=== PATIENT | female | born 1990 | race Caucasian/White ===

== ENCOUNTER 2017-02-16 16:49 | Emergency (ER) | payer OTHER ==
[2017-02-16] MEDS ORDERED: IBUPROFEN 800 MG TAB PO STA (17:11)
--- NOTE | 2017-02-16 17:21 | ED ---
Lower Extremity Injury HPI - General Chief Complaint: Extremity Injury, Lower Stated Complaint: Right Foot Injury Time Seen by Provider: 02/16/17 17:06 Source: patient Mode of arrival: wheelchair Limitations: no limitations - History of Present Illness Initial Comments: Patient is a 26-year-old female presenting to the emergency department with complaints of right forefoot pain. Onset of injury 4 days ago. Patient states she was asleep and rolled over and accidentally kicked her foot into the wall. Patient then states that her accidentally stepped on top of her right foot. In addition, patient states that she was walking and hit her right foot against some furniture. Patient reports previous right ankle fracture 2. Patient states she took some Motrin yesterday and put some ice on it. No treatment today. Patient currently rates pain 8 out of 10, exacerbated with movement, relieved with rest. Patient denies fevers, chills, nausea, vomiting, shortness of breath, chest pain, or abdominal pain. Patient denies numbness or tingling. Patient states she is able to bear weight on her foot but it is painful. - Related Data Previous Rx's Medication Instructions Recorded Cyclobenzaprine [Flexeril] 10 mg PO TID #20 tab 10/20/16 Ibuprofen [Motrin] 600 mg PO Q6HR PRN #20 tab 10/20/16 Ibuprofen [Motrin] 800 mg PO Q8HR PRN #20 tab 02/16/17 Allergies Allergy/AdvReac Type Severity Reaction Status Date / Time No Known Allergies Allergy Verified 10/20/16 15:47 Review of Systems ROS Statement: Those systems with pertinent positive or pertinent negative responses have been documented in the HPI. ROS Other: All systems not noted in ROS Statement are negative. Past Medical History Past Medical History: Asthma Additional Past Medical History / Comment(s): back pain History of Any Multi-Drug Resistant Organisms: None Reported Past Surgical History: Section Additional Past Surgical History / Comment(s): D&C HYSTOSCOPE, neck surgery Past Psychological History: Anxiety, Depression Smoking Status: Current every day smoker Past Alcohol Use History: None Reported Past Drug Use History: None Reported General Exam - General Exam Comments Initial Comments: GENERAL: Pt awake and alert, well-appearing, well-nourished, and in no acute distress. HEAD: Atraumatic, normocephalic. EYES: Pupils equal, round, and reactive to light, extraocular movements intact, sclera anicteric, conjunctiva are normal. ENT: Oropharynx clear without exudates. Moist mucous membranes. Tongue smooth, pink, no lesions, protrudes in midline. NECK:Normal range of motion, supple without lymphadenopathy or JVD. LUNGS: Breath sounds clear to auscultation bilaterally. No wheezes, rales, or rhonchi. HEART: Heart S1, S2, no S3 or S4. Regular rate and rhythm. No murmurs, rubs or gallops. ABDOMEN: Soft, nontender, nondistended, normoactive bowel sounds. EXTREMITIES: Palpable peripheral pulses. No edema. No calf tenderness. NEUROLOGICAL: Pt oriented x 3. No focal deficits. Strength and sensation grossly intact. PSYCH: Normal mood, normal affect. SKIN: Warm, dry, intact. Normal turgor. No rashes or lesions. Limitations: no limitations Right Ankle exam: Present: normal inspection, full ROM. Absent: tenderness, swelling Foot/Toe exam: Present: full ROM, tenderness (Tenderness to right forefoot), ecchymosis (Mild ecchymosis noted to right forefoot). Absent: swelling, deformity, erythema, calcaneal tenderness, tenderness at base of 5th metatarsal Neurovascular tendon exam: Absent: no vascular compromise, pulse deficit, abnormal cap refill, motor deficit, sensory deficit, extremity cold to touch, abnormal 2-point discrimination, foot drop Gait: observed and limited by pain Course Vital Signs 02/16/17 16:57 Temperature 97.5 F L Pulse Rate 71 Respiratory 15 Rate Blood Pressure 103/60 O2 Sat by Pulse 98 Oximetry Medical Decision Making - Medical Decision Making Right foot contusion. X-ray of right foot negative for fracture. RICE instructions provided. Patient instructed to follow-up with orthopedic surgeon with persistent pain. Patient agrees to treatment plan. Discharge instructions and return parameters reviewed. - Radiology Data Radiology results: report reviewed Right foot x-ray: No fracture or dislocation. Metatarsals are intact. Joint spaces are normal. No erosion. Disposition Clinical Impression: Contusion of right foot Disposition: HOME SELF-CARE Condition: Good Instructions: Foot Contusion (ED) Additional Instructions: Avoid activity that causes pain Ice 20 minutes 4 times a day usually for 2-3 days Ang wrap to provide support and limit swelling Keep elevated as much as possible 24-48 hours. Continue Motrin 800 mg 3 times a day as needed. Return to the emergency department with symptoms of increased swelling, pain, numbness, tingling, or foot feeling cold to touch. Follow-up with primary service and orthopedic service as directed. Prescriptions: Ibuprofen [Motrin] 800 mg PO Q8HR PRN #20 tab PRN Reason: Pain Referrals: None,Stated [Primary Care Provider] - 1-2 days Branden Matamoros PAC [[employer]] - 1-2 days (Follow-up in 7-10 days if pain persists.) Time of Disposition: 18:02
--- NOTE | 2017-02-16 17:46 | XR ---
EXAMINATION TYPE: XR foot complete RT DATE OF EXAM: 02/16/2017 5:29 PM COMPARISON: NONE HISTORY: Foot pain TECHNIQUE: 3 views FINDINGS: I see no fracture nor dislocation. Metatarsals are intact. Joint spaces are normal. There a re no erosions. IMPRESSION: Negative right foot exam.
[2017-02-16 18:13] VITALS: BP 96/59; PULSE 61; RESP 14; TEMP 97.9
== END 2017-02-16 18:15 | disposition home or self-care (01) ==
LOC: EC 16:49
DX: S90.31XA Contusion of right foot, initial encounter (principal); W22.01XA Walked into wall, initial encounter; F17.200 Nicotine dependence, unspecified, uncomplicated; Z79.899 Other long term (current) drug therapy
CPT/HCPCS: 99283

== ENCOUNTER 2017-03-14 18:50 | Emergency (ER) | payer OTHER ==
[2017-03-14 18:56] VITALS: RESP 20; TEMP 98
[2017-03-14] MEDS ORDERED: ONDANSETRON 4 MG/2 ML VIAL IVP STA (20:12)
[2017-03-14] MEDS ORDERED: SODIUM CHLORIDE 0.9% 1,000 ML IV STA (20:12)
[2017-03-14] MEDS ORDERED: KETOROLAC 30 MG/ML 1 ML VIAL IVP STA (20:12)
[2017-03-14] MEDS ORDERED: HYDROmorphone 1 MG/ML 1 ML SYRINGE IVP STA (20:12)
--- NOTE | 2017-03-14 20:27 | ED ---
Abdominal Pain HPI - General Chief Complaint: Abdominal Pain Stated Complaint: abd pain Time Seen by Provider: 03/14/17 20:07 Source: patient, RN notes reviewed Mode of arrival: ambulatory Limitations: no limitations - History of Present Illness Initial Comments: 26-year-old female presents emergency Department chief complaint right-sided abdominal pain, right flank pain for 10 days. Patient states it waxes and wanes but states it's much worse at this time. Patient denies any fever or chills. Patient complains of nausea is some vomiting. Denies any dysuria or hematuria. Patient states she's had some urinary frequency. Denies any vaginal bleeding at this time. She states she does had a menstrual cycle 2 weeks ago denies any chance . Patient denies any abdominal surgeries in the past. Patient states that she has a history of hep C. Patient denies any chest pain or shortness of breath. She states the pain does radiate to her back. - Related Data Previous Rx's Medication Instructions Recorded Acetaminophen-Codeine 300-30mg 1 tab PO Q4H PRN #20 tablet 03/14/17 [Tylenol #3] Ibuprofen [Motrin] 600 mg PO Q8HR PRN #30 tab 03/14/17 Allergies Allergy/AdvReac Type Severity Reaction Status Date / Time No Known Allergies Allergy Verified 03/14/17 20:05 Review of Systems ROS Statement: Those systems with pertinent positive or pertinent negative responses have been documented in the HPI. ROS Other: All systems not noted in ROS Statement are negative. Past Medical History Past Medical History: Asthma Additional Past Medical History / Comment(s): back pain History of Any Multi-Drug Resistant Organisms: None Reported Past Surgical History: Section Additional Past Surgical History / Comment(s): D&C HYSTOSCOPE, neck surgery Past Psychological History: Anxiety, Depression Smoking Status: Current every day smoker Past Alcohol Use History: None Reported Past Drug Use History: None Reported General Exam Limitations: no limitations General appearance: alert, in no apparent distress Neck exam: Present: normal inspection, full ROM. Absent: tenderness, meningismus, lymphadenopathy Respiratory exam: Present: normal lung sounds bilaterally. Absent: respiratory distress, wheezes, rales, rhonchi, stridor Cardiovascular Exam: Present: regular rate, normal rhythm, normal heart sounds. Absent: systolic murmur, diastolic murmur, rubs, gallop, clicks GI/Abdominal exam: Present: soft, tenderness (Mild tenderness right lower quadrant, right flank), normal bowel sounds. Absent: distended, guarding, rebound, rigid Back exam: Present: CVA tenderness (R). Absent: CVA tenderness (L) Neurological exam: Present: alert Skin exam: Present: warm, dry, intact, normal color. Absent: rash Course Vital Signs 03/14/17 18:54 Temperature 98.0 F Pulse Rate 85 Respiratory 20 Rate Blood Pressure 103/63 O2 Sat by Pulse 99 Oximetry Medical Decision Making - Medical Decision Making 26-year-old female presented for right lower quadrant abdominal pain. Patient has a right ovarian cyst. Patient will be discharged. - Lab Data Result diagrams: 03/14/17 20:36 03/14/17 20:36 Lab Results 03/14/17 03/14/17 03/14/17 Range/Units 20:36 20:36 20:36 WBC 7.7 (3.8-10.6) k/uL RBC 4.65 (3.80-5.40) m/uL Hgb 12.9 (11.4-16.0) gm/dL Hct 40.5 (34.0-46.0) % MCV 87.0 (80.0-100.0) fL MCH 27.8 (25.0-35.0) pg MCHC 32.0 (31.0-37.0) g/dL RDW 13.3 (11.5-15.5) % Plt Count 175 (150-450) k/uL Neutrophils % 64 % Lymphocytes % 25 % Monocytes % 5 % Eosinophils % 4 % Basophils % 1 % Neutrophils # 4.9 (1.3-7.7) k/uL Lymphocytes # 1.9 (1.0-4.8) k/uL Monocytes # 0.4 (0-1.0) k/uL Eosinophils # 0.3 (0-0.7) k/uL Basophils # 0.1 (0-0.2) k/uL Sodium 139 (137-145) mmol/L Potassium 4.0 (3.5-5.1) mmol/L Chloride 105 (98-107) mmol/L Carbon Dioxide 25 (22-30) mmol/L Anion Gap 9 mmol/L BUN 8 (7-17) mg/dL Creatinine 0.70 (0.52-1.04) mg/dL Est GFR (MDRD) Af Amer >60 (>60 ml/min/1.73 sqM) Est GFR (MDRD) Non-Af >60 (>60 ml/min/1.73 sqM) Glucose 88 (74-99) mg/dL Calcium 9.7 (8.4-10.2) mg/dL Total Bilirubin 0.6 (0.2-1.3) mg/dL AST 26 (14-36) U/L ALT 47 (9-52) U/L Alkaline Phosphatase 40 (38-126) U/L Total Protein 7.2 (6.3-8.2) g/dL Albumin 4.5 (3.5-5.0) g/dL Amylase 46 (30-110) U/L Lipase 14 L (23-300) U/L Urine Color Urine Appearance (Clear) Urine pH (5.0-8.0) Ur Specific [place] (1.001-1.035) Urine Protein (Negative) Urine Glucose (UA) (Negative) Urine Ketones (Negative) Urine Blood (Negative) Urine Nitrite (Negative) Urine Bilirubin (Negative) Urine Urobilinogen (<2.0) mg/dL Ur Leukocyte Esterase (Negative) Urine RBC (0-5) /hpf Urine WBC (0-5) /hpf Ur Squamous Epith Cells (0-4) /hpf Amorphous Sediment (None) /hpf Urine Mucus (None) /hpf Urine Sperm (None) /hpf Urine HCG, Qual Not Detected (Not Detectd) 03/14/17 Range/Units 20:36 WBC (3.8-10.6) k/uL RBC (3.80-5.40) m/uL Hgb (11.4-16.0) gm/dL Hct (34.0-46.0) % MCV (80.0-100.0) fL MCH (25.0-35.0) pg MCHC (31.0-37.0) g/dL RDW (11.5-15.5) % Plt Count (150-450) k/uL Neutrophils % % Lymphocytes % % Monocytes % % Eosinophils % % Basophils % % Neutrophils # (1.3-7.7) k/uL Lymphocytes # (1.0-4.8) k/uL Monocytes # (0-1.0) k/uL Eosinophils # (0-0.7) k/uL Basophils # (0-0.2) k/uL Sodium (137-145) mmol/L Potassium (3.5-5.1) mmol/L Chloride (98-107) mmol/L Carbon Dioxide (22-30) mmol/L Anion Gap mmol/L BUN (7-17) mg/dL Creatinine (0.52-1.04) mg/dL Est GFR (MDRD) Af Amer (>60 ml/min/1.73 sqM) Est GFR (MDRD) Non-Af (>60 ml/min/1.73 sqM) Glucose (74-99) mg/dL Calcium (8.4-10.2) mg/dL Total Bilirubin (0.2-1.3) mg/dL AST (14-36) U/L ALT (9-52) U/L Alkaline Phosphatase (38-126) U/L Total Protein (6.3-8.2) g/dL Albumin (3.5-5.0) g/dL Amylase (30-110) U/L Lipase (23-300) U/L Urine Color Yellow Urine Appearance Cloudy H (Clear) Urine pH 8.0 (5.0-8.0) Ur Specific [place] 1.013 (1.001-1.035) Urine Protein Negative (Negative) Urine Glucose (UA) Negative (Negative) Urine Ketones Negative (Negative) Urine Blood Negative (Negative) Urine Nitrite Negative (Negative) Urine Bilirubin Negative (Negative) Urine Urobilinogen <2.0 (<2.0) mg/dL Ur Leukocyte Esterase Negative (Negative) Urine RBC 1 (0-5) /hpf Urine WBC 2 (0-5) /hpf Ur Squamous Epith Cells 9 H (0-4) /hpf Amorphous Sediment Occasional H (None) /hpf Urine Mucus Occasional H (None) /hpf Urine Sperm Rare (None) /hpf Urine HCG, Qual (Not Detectd) Disposition Clinical Impression: Ovarian cyst Disposition: HOME SELF-CARE Condition: Stable Instructions: Ovarian Cyst (ED) Additional Instructions: Please return to the Emergency Department if symptoms worsen or any other concerns. Prescriptions: Acetaminophen-Codeine 300-30mg [Tylenol #3] 1 tab PO Q4H PRN #20 tablet PRN Reason: pain Ibuprofen [Motrin] 600 mg PO Q8HR PRN #30 tab PRN Reason: Pain Time of Disposition: 22:06
[2017-03-14 21:01] LABS: Basophils # (A) 0.1 k/uL (0-0.2); Basophils % (A) 1 %; CH 28.1; CHCM 32.4; Eosinophils # (A) 0.3 k/uL (0-0.7); Eosinophils % (A) 4 %; HCT 40.5 % (34.0-46.0); HDW 2.29; HGB 12.9 gm/dL (11.4-16.0); Luc # (Auto) 0.21; Luc % (Auto) 3; Lymphocytes # (A) 1.9 k/uL (1.0-4.8); Lymphocytes % (A) 25 %; MCH 27.8 pg (25.0-35.0); Mean Platelet Volume 9.4; Monocytes # (A) 0.4 k/uL (0-1.0); Monocytes % (A) 5 %; Neutrophils # (A) 4.9 k/uL (1.3-7.7); Neutrophils % (A) 64 %; RBC 4.65 m/uL (3.80-5.40); RDW 13.3 % (11.5-15.5); WBC 7.7 k/uL (3.8-10.6); WBC (Perox) 7.83
[2017-03-14 21:10] LABS: Amorphous Sediment,Urine Occasional /hpf; Appearance,Urine Cloudy (Clear); Bilirubin,Urine Negative (Negative); Glucose,Urine (UA) Negative (Negative); Ketones,Urine Negative (Negative); Leukocyte Esterase,Urine Negative (Negative); Mucus,Urine Occasional /hpf; Nitrite,Urine Negative (Negative); Particle Count 9133; Protein,Urine Negative (Negative); RBC,Urine 1 /hpf (0-5); Specific Gravity,Urine 1.013 (1.001-1.035); Sperm,Urine Rare /hpf; Squamous Epithelial Cell,Urine 9 /hpf (0-4); UA Billing (MACRO vs. MICRO) MICRO; Urobilinogen,Urine <2.0 mg/dL (<2.0); WBC,Urine 2 /hpf (0-5)
[2017-03-14 21:16] LABS: ALT 47 U/L (9-52); AST 26 U/L (14-36); Alkaline Phosphatase 40 U/L (38-126); Amylase 46 U/L (30-110); Anion Gap 9 mmol/L; Blood Urea Nitrogen 8 mg/dL (7-17); Calcium 9.7 mg/dL (8.4-10.2); Carbon Dioxide 25 mmol/L (22-30); Chloride 105 mmol/L (98-107); Glucose 88 mg/dL (74-99); Non-African American GFR(MDRD) >60 (>60 ml/min/1.73 sqM); Sodium 139 mmol/L (137-145); Total Bilirubin 0.6 mg/dL (0.2-1.3); Total Protein 7.2 g/dL (6.3-8.2)
[2017-03-14] MEDS ORDERED: RX INFO: IV CONTRAST WAS GIVEN 1 EACH MISC MISCELLANE PRN (21:20)
--- NOTE | 2017-03-14 21:29 | XR ---
EXAMINATION TYPE: XR KUB DATE OF EXAM: 03/14/2017 9:24 PM COMPARISON: 11/23/2011 HISTORY: Abdominal pain TECHNIQUE: 2 views FINDINGS: The bowel gas pattern is normal. There is no sign of intestinal obstruction or pneumoperito neum. Fecal pattern is normal. There is no sign of a mass. There are no pathologic calcifications ove r the kidneys. IMPRESSION: Nonacute abdomen. No change.
--- NOTE | 2017-03-14 21:59 | CT ---
EXAMINATION TYPE: CT abdomen pelvis w con DATE OF EXAM: 03/14/2017 9:43 PM COMPARISON: 04/13/2011 HISTORY: Mid Right sided pain with nuasea for [address] DLP: 318.2 mGycm Automated exposure control for dose reduction was used. TECHNIQUE: Helical acquisition of images was performed from the lung bases through the pelvis. CONTRAST: Performed without Oral Contrast and with IV Contrast, patient injected with 100 mL of Omnipaque 300. FINDINGS: Lung bases are clear. There is no pleural effusion. Liver spleen pancreas gallbladder appear normal. Bile ducts are not dilated. There is no adrenal mass . Kidneys show satisfactory contrast opacification. There is no hydronephrosis. There is no retroperi toneal adenopathy. There is no ascites. There is a 2 cm cyst on the right ovary. There is no definite free fluid in the pelvis. Bladder is almost empty. There is no sign of a pelvic mass. Appendix appea rs normal. I see no bony destructive process. IMPRESSION: NORMAL APPENDIX. NEGATIVE CT SCAN OF THE ABDOMEN AND PELVIS. RIGHT OVARIAN CYST NOTED. NO ADVERSE ESDRAS NGE COMPARED TO LAST EXAM.
[2017-03-14 22:14] VITALS: BP 121/66; PULSE 88
== END 2017-03-14 22:13 | disposition home or self-care (01) ==
LOC: EC 18:50
DX: N83.201 Unspecified ovarian cyst, right side (principal); R35.0 Frequency of micturition; R11.2 Nausea with vomiting, unspecified; F17.200 Nicotine dependence, unspecified, uncomplicated
CPT/HCPCS: 36415; 80053; 82150; 83690; 85025; 81001; 81025; 74000; 74177; 99284; 96374; 96375 ×2; 96361 ×2; J2405; J1885; J1170; Q9967

== ENCOUNTER 2017-03-22 17:08 | Emergency (ER) | payer OTHER ==
[2017-03-22 17:29] LABS: Glucose,Whole Blood 86 mg/dL (75-99)
[2017-03-22] MEDS ORDERED: SODIUM CHLORIDE 0.9% 1,000 ML IV STA (17:33)
[2017-03-22] MEDS ORDERED: LORazepam 2 MG/ML SYRINGE IV STA (17:33)
--- NOTE | 2017-03-22 17:36 | ED ---
General Adult HPI - General Chief complaint: Weakness Stated complaint: Weakness Time Seen by Provider: 03/22/17 17:26 Source: patient, family, RN notes reviewed Mode of arrival: wheelchair Limitations: no limitations - History of Present Illness Initial comments: Patient is a pleasant 26-year-old female presenting to the emergency department after going limp. Patient did not fully lose consciousness. Patient has had similar episodes 3 times this past month. Patient does have a history of anxiety and has had some increased stress recently. Patient feels tingly all over, especially in her hands and legs. Patient states it's hard to move. Patient states it's hard to talk. - Related Data Home Medications Medication Instructions Recorded Confirmed No Known Home Medications [No 03/22/17 03/22/17 Known Home Medications] Allergies Allergy/AdvReac Type Severity Reaction Status Date / Time No Known Allergies Allergy Verified 03/22/17 17:23 Review of Systems ROS Statement: Those systems with pertinent positive or pertinent negative responses have been documented in the HPI. ROS Other: All systems not noted in ROS Statement are negative. Constitutional: Denies: fever Eyes: Denies: eye pain ENT: Denies: ear pain Respiratory: Denies: cough Cardiovascular: Denies: chest pain Endocrine: Reports: fatigue Gastrointestinal: Denies: abdominal pain Musculoskeletal: Denies: back pain Skin: Denies: rash Neurological: Reports: weakness, numbness, paresthesias. Denies: headache Psychiatric: Reports: anxiety Past Medical History Past Medical History: Asthma Additional Past Medical History / Comment(s): back pain History of Any Multi-Drug Resistant Organisms: None Reported Past Surgical History: Section Additional Past Surgical History / Comment(s): D&C HYSTOSCOPE, neck surgery Past Psychological History: Anxiety, Depression Smoking Status: Current every day smoker Past Alcohol Use History: Rare Past Drug Use History: None Reported General Exam Limitations: no limitations General appearance: alert, in no apparent distress Head exam: Present: atraumatic Eye exam: Present: normal appearance, PERRL, EOMI. Absent: nystagmus ENT exam: Present: normal oropharynx Neck exam: Present: normal inspection Respiratory exam: Present: normal lung sounds bilaterally Cardiovascular Exam: Present: tachycardia GI/Abdominal exam: Present: soft. Absent: tenderness Extremities exam: Present: normal inspection Neurological exam: Present: alert Expanded Cranial nerves: EOM's Intact: Normal, Facial Sensation: Normal Sensory exam: Upper Extremity Light Touch: Normal, Lower Extremity Light Touch: Normal Motor strength exam: RUE: 5, LUE: 5, RLE: 5, LLE: 5 Eye Response: (4) open spontaneously Motor Response: (6) obeys commands Verbal Response: (5) oriented Psychiatric exam: Present: normal affect, normal mood Skin exam: Absent: rash Course Vital Signs 03/22/17 03/22/17 03/22/17 17:12 17:39 18:13 Temperature 98.7 F Pulse Rate 110 H 68 78 Respiratory 20 24 14 Rate Blood Pressure 104/66 136/88 110/65 O2 Sat by Pulse 98 94 L 95 Oximetry 03/22/17 19:13 Temperature Pulse Rate 83 Respiratory 18 Rate Blood Pressure 107/68 O2 Sat by Pulse 99 Oximetry - Reevaluation(s) Reevaluation #1: 03/22/17 19:20 Patient had an episode just after IV placement however did not fully lose consciousness. Patient was responsive to light touch. Vital signs were stable. playground monitor with normal sinus rhythm. Patient was reexamined at this time and states she is starting to feel much better. Patient states she does not normally drink much alcohol. Patient does add that there has been a lot of stress in the house at home related to money. Patient is agreeable that this may be the cause for problems. 03/22/17 19:21 Patient is updated on results and is comfortable with discharge. EKG Findings - EKG Comments: EKG Findings:: Sinus tachycardia 116. DC 112. QRS 68. QT 316. QTC 439. Normal axis. Normal QRS. Normal ST-T. Medical Decision Making - Lab Data Result diagrams: 03/22/17 17:30 03/22/17 17:30 Lab Results 03/22/17 03/22/17 03/22/17 Range/Units 17:28 17:30 17:30 WBC 8.5 (3.8-10.6) k/uL RBC 4.83 (3.80-5.40) m/uL Hgb 13.7 (11.4-16.0) gm/dL Hct 41.3 (34.0-46.0) % MCV 85.6 (80.0-100.0) fL MCH 28.3 (25.0-35.0) pg MCHC 33.0 (31.0-37.0) g/dL RDW 13.1 (11.5-15.5) % Plt Count 190 (150-450) k/uL Neutrophils % 59 % Lymphocytes % 28 % Monocytes % 4 % Eosinophils % 5 % Basophils % 1 % Neutrophils # 5.0 (1.3-7.7) k/uL Lymphocytes # 2.4 (1.0-4.8) k/uL Monocytes # 0.3 (0-1.0) k/uL Eosinophils # 0.5 (0-0.7) k/uL Basophils # 0.1 (0-0.2) k/uL Sodium 144 (137-145) mmol/L Potassium 3.9 (3.5-5.1) mmol/L Chloride 110 H (98-107) mmol/L Carbon Dioxide 19 L (22-30) mmol/L Anion Gap 15 mmol/L BUN 10 (7-17) mg/dL Creatinine 0.70 (0.52-1.04) mg/dL Est GFR (MDRD) Af Amer >60 (>60 ml/min/1.73 sqM) Est GFR (MDRD) Non-Af >60 (>60 ml/min/1.73 sqM) Glucose 94 (74-99) mg/dL POC Glucose (mg/dL) 86 (75-99) mg/dL POC Glu [employer] ID Justine Tatum Calcium 10.0 (8.4-10.2) mg/dL Magnesium 2.3 (1.6-2.3) mg/dL Total Bilirubin 0.5 (0.2-1.3) mg/dL AST 26 (14-36) U/L ALT 43 (9-52) U/L Alkaline Phosphatase 36 L (38-126) U/L Total Protein 8.5 H (6.3-8.2) g/dL Albumin 5.1 H (3.5-5.0) g/dL Urine Color Urine Appearance (Clear) Urine pH (5.0-8.0) Ur Specific [place] (1.001-1.035) Urine Protein (Negative) Urine Glucose (UA) (Negative) Urine Ketones (Negative) Urine Blood (Negative) Urine Nitrite (Negative) Urine Bilirubin (Negative) Urine Urobilinogen (<2.0) mg/dL Ur Leukocyte Esterase (Negative) Serum Alcohol 70 mg/dL 03/22/17 Range/Units 17:30 WBC (3.8-10.6) k/uL RBC (3.80-5.40) m/uL Hgb (11.4-16.0) gm/dL Hct (34.0-46.0) % MCV (80.0-100.0) fL MCH (25.0-35.0) pg MCHC (31.0-37.0) g/dL RDW (11.5-15.5) % Plt Count (150-450) k/uL Neutrophils % % Lymphocytes % % Monocytes % % Eosinophils % % Basophils % % Neutrophils # (1.3-7.7) k/uL Lymphocytes # (1.0-4.8) k/uL Monocytes # (0-1.0) k/uL Eosinophils # (0-0.7) k/uL Basophils # (0-0.2) k/uL Sodium (137-145) mmol/L Potassium (3.5-5.1) mmol/L Chloride (98-107) mmol/L Carbon Dioxide (22-30) mmol/L Anion Gap mmol/L BUN (7-17) mg/dL Creatinine (0.52-1.04) mg/dL Est GFR (MDRD) Af Amer (>60 ml/min/1.73 sqM) Est GFR (MDRD) Non-Af (>60 ml/min/1.73 sqM) Glucose (74-99) mg/dL POC Glucose (mg/dL) (75-99) mg/dL POC Glu [employer] ID Calcium (8.4-10.2) mg/dL Magnesium (1.6-2.3) mg/dL Total Bilirubin (0.2-1.3) mg/dL AST (14-36) U/L ALT (9-52) U/L Alkaline Phosphatase (38-126) U/L Total Protein (6.3-8.2) g/dL Albumin (3.5-5.0) g/dL Urine Color Colorless Urine Appearance Clear (Clear) Urine pH 5.5 (5.0-8.0) Ur Specific [place] 1.001 (1.001-1.035) Urine Protein Negative (Negative) Urine Glucose (UA) Negative (Negative) Urine Ketones Negative (Negative) Urine Blood Negative (Negative) Urine Nitrite Negative (Negative) Urine Bilirubin Negative (Negative) Urine Urobilinogen <2.0 (<2.0) mg/dL Ur Leukocyte Esterase Negative (Negative) Serum Alcohol mg/dL Disposition Clinical Impression: Near syncope Disposition: HOME SELF-CARE Condition: Stable Instructions: Near Syncope (ED), Anxiety (ED) Additional Instructions: Please try to avoid anxiety and stress and alcohol. Please follow-up with primary care physician Friday. Return for passing out, chest pain or breathing problems, confusion, worsening symptoms or other concerns. Referrals: None,Stated [Primary Care Provider] - 1-2 days Isaias Iniguez MD [STAFF PHYSICIAN] - 1-2 days
[2017-03-22 17:45] LABS: Basophils # (A) 0.1 k/uL (0-0.2); Basophils % (A) 1 %; CH 28.1; CHCM 32.9; Eosinophils # (A) 0.5 k/uL (0-0.7); Eosinophils % (A) 5 %; HCT 41.3 % (34.0-46.0); HDW 2.31; HGB 13.7 gm/dL (11.4-16.0); Luc # (Auto) 0.24; Luc % (Auto) 3; Lymphocytes # (A) 2.4 k/uL (1.0-4.8); Lymphocytes % (A) 28 %; MCH 28.3 pg (25.0-35.0); MCV 85.6 fL (80.0-100.0); Mean Platelet Volume 9.1; Monocytes # (A) 0.3 k/uL (0-1.0); Monocytes % (A) 4 %; Neutrophils % (A) 59 %; RBC 4.83 m/uL (3.80-5.40); RDW 13.1 % (11.5-15.5); WBC 8.5 k/uL (3.8-10.6); WBC (Perox) 8.35
[2017-03-22 17:56] LABS: Appearance,Urine Clear (Clear); Bilirubin,Urine Negative (Negative); Glucose,Urine (UA) Negative (Negative); Ketones,Urine Negative (Negative); Leukocyte Esterase,Urine Negative (Negative); Nitrite,Urine Negative (Negative); PH, Urine 5.5 (5.0-8.0); Protein,Urine Negative (Negative); UA Billing (MACRO vs. MICRO) CHEM; Urobilinogen,Urine <2.0 mg/dL (<2.0)
[2017-03-22 17:57] LABS: ALT 43 U/L (9-52); AST 26 U/L (14-36); Alcohol 70 mg/dL; Alkaline Phosphatase 36 U/L (38-126); Anion Gap 15 mmol/L; Blood Urea Nitrogen 10 mg/dL (7-17); Carbon Dioxide 19 mmol/L (22-30); Chloride 110 mmol/L (98-107); Glucose 94 mg/dL (74-99); Magnesium 2.3 mg/dL (1.6-2.3); Non-African American GFR(MDRD) >60 (>60 ml/min/1.73 sqM); Potassium 3.9 mmol/L (3.5-5.1); Sodium 144 mmol/L (137-145); Total Bilirubin 0.5 mg/dL (0.2-1.3); Total Protein 8.5 g/dL (6.3-8.2)
[2017-03-22 18:06] LABS: Specific Gravity,Urine 1.001 (1.001-1.035)
[2017-03-22 20:24] VITALS: BP 101/63; PULSE 78; RESP 16; TEMP 97.5
== END 2017-03-22 20:20 | disposition home or self-care (01) ==
LOC: EC 17:08
DX: R55 Syncope and collapse (principal); R00.0 Tachycardia, unspecified; F17.200 Nicotine dependence, unspecified, uncomplicated
CPT/HCPCS: 99285; 96374; 36415; 93005; 80053; 83735; 85025; 81003; 80320; J2060

== ENCOUNTER 2017-08-09 17:52 | Emergency (ER) | payer OTHER ==
[2017-08-09] MEDS: ONDANSETRON 4 MG/2 ML VIAL IVP STA ×2 (17:58→21:56)
[2017-08-09] MEDS ORDERED: SODIUM CHLORIDE 0.9% 1,000 ML IV STA (17:59)
[2017-08-09] MEDS ORDERED: LORazepam 2 MG/ML SYRINGE IV STA (18:00)
--- NOTE | 2017-08-09 18:04 | ED ---
Head Injury HPI - General Source: family, RN notes reviewed, Caregiver Mode of arrival: wheelchair Limitations: altered mental status - History of Present Illness MD Complaint: head injury, fall <Bennett Montelongo - Last Filed: 08/09/17 19:28> <Sarbjit Braxton - Last Filed: 08/09/17 20:23> - General Chief complaint: Head Injury Stated complaint: unresponsive Time Seen by Provider: 08/09/17 17:53 - History of Present Illness Initial comments: This is a 27-year-old female with a history of syncopal episodes who apparently fell and hit her head against a refrigerator about 2 hours prior to admission she is complain some head and neck pain. She was brought in by her boyfriend after she was found to be shaking so complain of pain. No prior history of seizures she has a history of strokes apparently has no history of drug abuse. No other history is available at this time (Bennett Montelongo) - Related Data Home Medications Medication Instructions Recorded Confirmed Albuterol Inhaler [Ventolin Hfa 1 - 2 puff INHALATION RT-QID PRN 08/09/17 Inhaler] Amitriptyline HCl [Elavil] 25 mg PO HS 08/09/17 08/09/17 DULoxetine HCL [Cymbalta] 30 mg PO DAILY 08/09/17 08/09/17 Gabapentin [Neurontin] 300 mg PO BID 08/09/17 08/09/17 Meclizine [Antivert] 25 mg PO DAILY PRN 08/09/17 08/09/17 Naproxen [Naprosyn] 500 mg PO BID PRN 08/09/17 08/09/17 Ondansetron [Zofran ODT] 4 mg PO Q8HR PRN 08/09/17 08/09/17 lamoTRIgine [LaMICtal] 200 mg PO HS 08/09/17 08/09/17 Allergies/Adverse reactions: Allergies Allergy/AdvReac Type Severity Reaction Status Date / Time No Known Allergies Allergy Verified 08/09/17 18:12 Review of Systems ROS Other: All systems not noted in ROS Statement are negative. Limitations: ROS unobtainable due to patients medical condition <Bennett Montelongo - Last Filed: 08/09/17 19:28> ROS Other: All systems not noted in ROS Statement are negative. <Sarbjit Braxton - Last Filed: 08/09/17 20:23> ROS Statement: Those systems with pertinent positive or pertinent negative responses have been documented in the HPI. Past Medical History Past Medical History: Asthma Additional Past Medical History / Comment(s): back pain, syncope History of Any Multi-Drug Resistant Organisms: None Reported Past Surgical History: Section Additional Past Surgical History / Comment(s): D&C HYSTOSCOPE, neck surgery Past Psychological History: Anxiety, Depression Smoking Status: Current every day smoker Past Alcohol Use History: Rare Past Drug Use History: None Reported <ReginaldBennett - Last Filed: 08/09/17 19:28> General Exam Limitations: altered mental status Head exam: Present: normocephalic, other (Some mild tenderness palpation of the occipital scalp no definite step-off or crepitation no open wounds are seen.) Eye exam: Present: normal appearance, PERRL, EOMI. Absent: scleral icterus, conjunctival injection, periorbital swelling ENT exam: Present: TM's normal bilaterally, other (No evidence of any drainage or discharge seen from the nares or from the ear canals. Patient did have some foamy white material in the mouth which was suctioned.) Neck exam: Present: normal inspection, full ROM. Absent: tenderness, meningismus, lymphadenopathy Respiratory exam: Present: other (Tachypnea) Cardiovascular Exam: Present: regular rate, normal rhythm, normal heart sounds. Absent: systolic murmur, diastolic murmur, rubs, gallop, clicks GI/Abdominal exam: Present: soft, normal bowel sounds. Absent: distended, tenderness, guarding, rebound, rigid Extremities exam: Present: normal inspection, full ROM, normal capillary refill. Absent: tenderness, pedal edema, joint swelling, calf tenderness Back exam: Present: normal inspection Neurological exam: Present: altered, CN II-XII intact. Absent: motor sensory deficit Psychiatric exam: Present: agitated, anxious Skin exam: Present: warm, dry, intact, normal color. Absent: rash <Bennett Montelongo - Last Filed: 08/09/17 19:28> <Sarbjit Braxton - Last Filed: 08/09/17 20:23> - General Exam Comments Initial Comments: This is a well-developed well-nourished female who appears to be hyperventilating and having some tremors with some foaming in her mouth. (Bennett Montelongo) Course <Bennett Montelongo - Last Filed: 08/09/17 19:28> <Sarbjit Braxton - Last Filed: 08/09/17 20:23> Vital Signs 08/09/17 08/09/17 08/09/17 17:54 18:14 20:19 Temperature 97.8 F 98 F Pulse Rate 93 74 78 Respiratory 28 H 16 16 Rate Blood Pressure 143/85 117/68 110/69 O2 Sat by Pulse 95 99 100 Oximetry - Reevaluation(s) Reevaluation #1: 08/09/17 19:27 Reevaluation the patient was awake alert oriented she felt much improved she did describe the episode as getting up too fast after being in a refrigerator looking for a butter dish. She has had episodes like this before. Patient does have evidence of a possible calcified vessel or other calcification that was noted by the radiologist. A CTA was suggested this will be ordered. Patient will be endorsed to Dr. Braxton will make the final disposition (Bennett Montelongo) Reevaluation #2: 08/09/17 20:23 Spoke with family and patient regarding symptoms, questions answered (Sarbjit Braxton) Reevaluation #3: 08/09/17 20:23 Patient is without headache, without new seizure or syncopal events (Sarbjit Braxton) Medical Decision Making - Lab Data Result diagrams: 08/09/17 18:00 08/09/17 18:00 - Radiology Data Radiology results: report reviewed (I did review the x-ray no acute findings.), image reviewed <Bennett Montelongo - Last Filed: 08/09/17 19:28> - Lab Data Result diagrams: 08/09/17 18:00 08/09/17 18:00 - EKG Data -: EKG Interpreted by Me (EKG shows sinus rhythm at 62, CO 100, QRS 80, QTC 424) <Sarbjit Braxton - Last Filed: 08/09/17 20:23> - Medical Decision Making 20. ER for evaluation of syncopal event may be seizure-like activity, CTA of head does show positive aneurysm, patient be transferred for neurosurgical evaluation (Sarbjit Barxton) - Lab Data Lab Results 08/09/17 08/09/17 08/09/17 Range/Units 18:00 18:00 18:00 WBC 6.1 (3.8-10.6) k/uL RBC 4.59 (3.80-5.40) m/uL Hgb 13.2 (11.4-16.0) gm/dL Hct 38.7 (34.0-46.0) % MCV 84.4 (80.0-100.0) fL MCH 28.7 (25.0-35.0) pg MCHC 34.1 (31.0-37.0) g/dL RDW 14.0 (11.5-15.5) % Plt Count 177 (150-450) k/uL Neutrophils % 57 % Lymphocytes % 32 % Monocytes % 7 % Eosinophils % 1 % Basophils % 1 % Neutrophils # 3.5 (1.3-7.7) k/uL Lymphocytes # 1.9 (1.0-4.8) k/uL Monocytes # 0.4 (0-1.0) k/uL Eosinophils # 0.1 (0-0.7) k/uL Basophils # 0.0 (0-0.2) k/uL PT (9.0-12.0) sec INR (<1.2) APTT (22.0-30.0) sec D-Dimer (<0.60) mg/L FEU Sodium 138 (137-145) mmol/L Potassium 3.7 (3.5-5.1) mmol/L Chloride 106 (98-107) mmol/L Carbon Dioxide 18 L (22-30) mmol/L Anion Gap 14 mmol/L BUN 13 (7-17) mg/dL Creatinine 0.79 (0.52-1.04) mg/dL Est GFR (MDRD) Af Amer >60 (>60 ml/min/1.73 sqM) Est GFR (MDRD) Non-Af >60 (>60 ml/min/1.73 sqM) Glucose 81 (74-99) mg/dL Calcium 9.6 (8.4-10.2) mg/dL Magnesium 1.8 (1.6-2.3) mg/dL Total Bilirubin 0.8 (0.2-1.3) mg/dL AST 25 (14-36) U/L ALT 44 (9-52) U/L Alkaline Phosphatase 46 (38-126) U/L Total Creatine Kinase 49 (30-135) U/L CK-MB (CK-2) <0.2 (0.0-2.4) ng/mL CK-MB (CK-2) Rel Index Troponin I <0.012 (0.000-0.034) ng/mL Total Protein 7.9 (6.3-8.2) g/dL Albumin 5.1 H (3.5-5.0) g/dL Urine Color Urine Appearance (Clear) Urine pH (5.0-8.0) Ur Specific [place] (1.001-1.035) Urine Protein (Negative) Urine Glucose (UA) (Negative) Urine Ketones (Negative) Urine Blood (Negative) Urine Nitrite (Negative) Urine Bilirubin (Negative) Urine Urobilinogen (<2.0) mg/dL Ur Leukocyte Esterase (Negative) Urine RBC (0-5) /hpf Urine WBC (0-5) /hpf Ur Squamous Epith Cells (0-4) /hpf Urine Mucus (None) /hpf Urine HCG, Qual (Not Detectd) Salicylates <1.0 mg/dL Urine Opiates Screen (NotDetected) Ur Oxycodone Screen (NotDetected) Urine Methadone Screen (NotDetected) Ur Propoxyphene Screen (NotDetected) Acetaminophen <10.0 ug/mL Ur Barbiturates Screen (NotDetected) U Tricyclic Antidepress (NotDetected) Ur Phencyclidine Scrn (NotDetected) Ur Amphetamines Screen (NotDetected) U Methamphetamines Scrn (NotDetected) U Benzodiazepines Scrn (NotDetected) Urine Cocaine Screen (NotDetected) U Marijuana (THC) Screen (NotDetected) Serum Alcohol <10 mg/dL 08/09/17 08/09/17 08/09/17 Range/Units 18:00 18:33 18:33 WBC (3.8-10.6) k/uL RBC (3.80-5.40) m/uL Hgb (11.4-16.0) gm/dL Hct (34.0-46.0) % MCV (80.0-100.0) fL MCH (25.0-35.0) pg MCHC (31.0-37.0) g/dL RDW (11.5-15.5) % Plt Count (150-450) k/uL Neutrophils % % Lymphocytes % % Monocytes % % Eosinophils % % Basophils % % Neutrophils # (1.3-7.7) k/uL Lymphocytes # (1.0-4.8) k/uL Monocytes # (0-1.0) k/uL Eosinophils # (0-0.7) k/uL Basophils # (0-0.2) k/uL PT 10.7 (9.0-12.0) sec INR 1.1 (<1.2) APTT 28.5 (22.0-30.0) sec D-Dimer 0.34 (<0.60) mg/L FEU Sodium (137-145) mmol/L Potassium (3.5-5.1) mmol/L Chloride (98-107) mmol/L Carbon Dioxide (22-30) mmol/L Anion Gap mmol/L BUN (7-17) mg/dL Creatinine (0.52-1.04) mg/dL Est GFR (MDRD) Af Amer (>60 ml/min/1.73 sqM) Est GFR (MDRD) Non-Af (>60 ml/min/1.73 sqM) Glucose (74-99) mg/dL Calcium (8.4-10.2) mg/dL Magnesium (1.6-2.3) mg/dL Total Bilirubin (0.2-1.3) mg/dL AST (14-36) U/L ALT (9-52) U/L Alkaline Phosphatase (38-126) U/L Total Creatine Kinase (30-135) U/L CK-MB (CK-2) (0.0-2.4) ng/mL CK-MB (CK-2) Rel Index Troponin I (0.000-0.034) ng/mL Total Protein (6.3-8.2) g/dL Albumin (3.5-5.0) g/dL Urine Color Yellow Urine Appearance Clear (Clear) Urine pH 6.5 (5.0-8.0) Ur Specific [place] 1.026 (1.001-1.035) Urine Protein 1+ H (Negative) Urine Glucose (UA) Negative (Negative) Urine Ketones 3+ H (Negative) Urine Blood Negative (Negative) Urine Nitrite Negative (Negative) Urine Bilirubin Negative (Negative) Urine Urobilinogen 4.0 (<2.0) mg/dL Ur Leukocyte Esterase Small H (Negative) Urine RBC 1 (0-5) /hpf Urine WBC 1 (0-5) /hpf Ur Squamous Epith Cells 1 (0-4) /hpf Urine Mucus Rare H (None) /hpf Urine HCG, Qual Not Detected (Not Detectd) Salicylates mg/dL Urine Opiates Screen Not Detected (NotDetected) Ur Oxycodone Screen Not Detected (NotDetected) Urine Methadone Screen Not Detected (NotDetected) Ur Propoxyphene Screen Not Detected (NotDetected) Acetaminophen ug/mL Ur Barbiturates Screen Not Detected (NotDetected) U Tricyclic Antidepress Detected H (NotDetected) Ur Phencyclidine Scrn Not Detected (NotDetected) Ur Amphetamines Screen Not Detected (NotDetected) U Methamphetamines Scrn Not Detected (NotDetected) U Benzodiazepines Scrn Detected H (NotDetected) Urine Cocaine Screen Not Detected (NotDetected) U Marijuana (THC) Screen Detected H (NotDetected) Serum Alcohol mg/dL Disposition <Bennett Montelongo - Last Filed: 08/09/17 19:28> - Out of Hospital Transfer - Req. Specs Out of Hospital Transfer - Requested Specifics: Other Emergency Center ([facility]) <Sarbjit Braxton - Last Filed: 08/09/17 20:23> Clinical Impression: Cerebral aneurysm, Syncope Disposition: OTHER INSTITUTION NOT DEFINED Condition: Serious Referrals: Rohini rOosco DO [Primary Care Provider] - 1-2 days
[2017-08-09 18:11] LABS: Basophils % (A) 1 %; CH 29.1; CHCM 34.7; Eosinophils # (A) 0.1 k/uL (0-0.7); Eosinophils % (A) 1 %; HCT 38.7 % (34.0-46.0); HDW 2.56; HGB 13.2 gm/dL (11.4-16.0); Luc # (Auto) 0.18; Luc % (Auto) 3; Lymphocytes # (A) 1.9 k/uL (1.0-4.8); Lymphocytes % (A) 32 %; MCH 28.7 pg (25.0-35.0); MCHC 34.1 g/dL (31.0-37.0); MCV 84.4 fL (80.0-100.0); Mean Platelet Volume 9.2; Monocytes # (A) 0.4 k/uL (0-1.0); Monocytes % (A) 7 %; Neutrophils # (A) 3.5 k/uL (1.3-7.7); Neutrophils % (A) 57 %; RBC 4.59 m/uL (3.80-5.40); WBC 6.1 k/uL (3.8-10.6); WBC (Perox) 6.64
[2017-08-09 18:15] VITALS: RESP 16
[2017-08-09 18:24] LABS: INR 1.1 (<1.2); Partial Thromboplastin Time 28.5 sec (22.0-30.0); Prothrombin Time 10.7 sec (9.0-12.0)
[2017-08-09 18:26] LABS: ALT 44 U/L (9-52); AST 25 U/L (14-36); Acetaminophen <10.0 ug/mL; Alcohol <10 mg/dL; Alkaline Phosphatase 46 U/L (38-126); Anion Gap 14 mmol/L; Blood Urea Nitrogen 13 mg/dL (7-17); Calcium 9.6 mg/dL (8.4-10.2); Carbon Dioxide 18 mmol/L (22-30); Chloride 106 mmol/L (98-107); Glucose 81 mg/dL (74-99); Magnesium 1.8 mg/dL (1.6-2.3); Non-African American GFR(MDRD) >60 (>60 ml/min/1.73 sqM); Potassium 3.7 mmol/L (3.5-5.1); Salicylate <1.0 mg/dL; Sodium 138 mmol/L (137-145); Total Bilirubin 0.8 mg/dL (0.2-1.3); Total Protein 7.9 g/dL (6.3-8.2)
[2017-08-09 18:30] LABS: Creatine Kinase 49 U/L (30-135)
[2017-08-09 18:43] LABS: Creatine Kinase MB <0.2 ng/mL (0.0-2.4); Troponin I <0.012 ng/mL (0.000-0.034)
--- NOTE | 2017-08-09 18:50 | CT ---
EXAMINATION TYPE: CT brain cspine wo con DATE OF EXAM: 08/09/2017 COMPARISON: NONE HISTORY: Unresponsive. CT DLP: 1361.1 mGycm. Automated Exposure Control for Dose Reduction was Utilized. TECHNIQUE: CT scan of the head and cervical spine are performed without contrast. FINDINGS: There is no acute intracranial hemorrhage, mass effect, or midline shift identified. The ventricles and sulci are within normal limits in size. The globes are intact and the visualized sin uses are clear. Dystrophic calcification is seen within the suprasellar cistern centrally of unknown etiology. Cerebellar tonsillar ectopia is present without herniation. Hypoattenuated region within th e left frontal lobe just superior to the gyrus rectus is related to spray artifact from adjacent dens e calvarium when correlated on the coronal images. Cervical spine is visualized in its entirety from C1 through upper thoracic levels and demonstrates s atisfactory alignment without evidence of acute fracture or dislocation. 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 Sclerotic focus within the spinous process of C7 may relate to benign bone island. C6 and C7 demonstrate osseous fusion, also likely congenital. There is fusion of the facet joints as well at this level. Prevertebral soft tissue appears within normal anaya its. The C1-C2 articulation is unremarkable. IMPRESSION: 1. There is no acute fracture or dislocation evident in the cervical spine. 2. No acute intracranial hemorrhage, mass effect, or midline shift is seen. 3. Dystrophic calcification within the suprasellar cistern or the hypothalamus. This is of unknown et iology however this could relate to a small dermoid, a typical location of calcified choroid plexuses are calcified aneurysm. CTA could be performed for further evaluation.
[2017-08-09 18:59] LABS: Appearance,Urine Clear (Clear); Bilirubin,Urine Negative (Negative); Glucose,Urine (UA) Negative (Negative); Ketones,Urine 3+ (Negative); Leukocyte Esterase,Urine Small (Negative); Mucus,Urine Rare /hpf; Nitrite,Urine Negative (Negative); PH, Urine 6.5 (5.0-8.0); Particle Count 3481; Protein,Urine 1+ (Negative); RBC,Urine 1 /hpf (0-5); Specific Gravity,Urine 1.026 (1.001-1.035); Squamous Epithelial Cell,Urine 1 /hpf (0-4); UA Billing (MACRO vs. MICRO) MICRO; WBC,Urine 1 /hpf (0-5)
[2017-08-09] MEDS ORDERED: RX INFO: IV CONTRAST WAS GIVEN 1 EACH MISC MISCELLANE PRN (19:26)
--- NOTE | 2017-08-09 19:30 | XR ---
EXAMINATION TYPE: XR chest 2V DATE OF EXAM: 08/09/2017 COMPARISON: NONE HISTORY: Unresponsive. TECHNIQUE: Frontal and lateral views of the chest are obtained. FINDINGS: There is no focal air space opacity, pleural effusion, or pneumothorax seen. The cardiac silhouette size is within normal limits. The osseous structures are intact. IMPRESSION: No acute cardiopulmonary process.
--- NOTE | 2017-08-09 20:08 | CT ---
EXAMINATION TYPE: CT angio head DATE OF EXAM: 08/09/2017 HISTORY: FINDINGS ON BRAIN WO CT. COMPARISON: CT brain of the same day. CT DLP: 121.5 mGycm. Automated Exposure Control for Dose Reduction was Utilized. TECHNIQUE: CTA scan of the neck is performed with IV Contrast, patient injected with 100 mL of Omnip aque 350, axial images are obtained, coronal and sagittal reformatted images are reviewed. Three-D re constructed images are created on an independent workstation and reviewed. FINDINGS: Carotid/Vascular Structures: There is patency of the bilateral carotids. The previously questioned ca lcification in the suprasellar cistern is contiguous with the P1 segment of the right posterior cereb ral artery and relates to a thrombosed aneurysm measuring 5 mm. No evidence of contrast extravasation is seen. This is directly adjacent to the basilar terminus. There is a diminutive left posterior communicating artery although the [place] of [place] is intact. No other focal aneurysms are seen. No significant stenosis. Vertebral arteries are codominant. Remainin g visualized portions of the brain are discussed on the CT brain dictation of the same day. 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
[2017-08-09] MEDS ORDERED: MORPHINE SULFATE 4 MG/ML SYRINGE IVP STA (21:54)
[2017-08-09] MEDS ORDERED: ONDANSETRON 4 MG/2 ML VIAL IVP STA (21:55)
[2017-08-09 22:04] VITALS: BP 138/66; PULSE 70; TEMP 97.8
== END 2017-08-09 22:03 | disposition other institution (70) ==
LOC: EC 17:52
DX: I67.1 Cerebral aneurysm, nonruptured (principal); R55 Syncope and collapse; F41.9 Anxiety disorder, unspecified; F32.9 Major depressive disorder, single episode, unspecified; F17.200 Nicotine dependence, unspecified, uncomplicated; Z79.899 Other long term (current) drug therapy; W01.198A Fall on same level from slipping, tripping and stumbling with subsequent striking against other object, initial encounter
CPT/HCPCS: 36415; 93005; 85379; 80053; 82550; 82553; 83735; 84484; 85025; 85610; 85730; 81001; 81025; 80306; 83520 ×2; 80320; 71020; 72125; 70496; 70450; 99285; 96374; 96375 ×2; 96361 ×4; J2060; J2270; Q9967; J2405

== ENCOUNTER 2017-08-12 11:58 | Emergency (ER) | payer OTHER ==
[2017-08-12] MEDS ORDERED: SODIUM CHLORIDE 0.9% 1,000 ML IV STA (12:27)
--- NOTE | 2017-08-12 12:57 | ED ---
General Adult HPI - General Chief complaint: Neuro Symptoms/Deficit Stated complaint: poss calfication Time Seen by Provider: 08/12/17 12:18 Source: patient, family, RN notes reviewed Mode of arrival: wheelchair Limitations: no limitations - History of Present Illness Initial comments: 27-year-old female presents with chief complaint of headache. Patient states she was seen here on Friday they found an aneurysm. Patient starts to develop a headache today. She points the back of her head and states it's just in this one spot in the posterior right side of her head and it feels like it in her brain. Basically were concerned because she just continues to complain this headache and they discussed under discharge that if she had a terrible headache that she needs to return to the emergency department. There is been no falls traumas or injuries. She does complain of change in sensation to the left side of the face minimally. They state that she is just been generalized weakness as well. They were concerned due to the patient's symptoms without that they should be seen. Patient denies any recent fever, chills, shortness of breath, chest pain, back pain, abdominal pain, nausea vomiting, numbness or tingling, dysuria or hematuria, constipation or diarrhea, visual changes, or any other current symptoms. - Related Data Home Medications Medication Instructions Recorded Confirmed Albuterol Inhaler [Ventolin Hfa 1 - 2 puff INHALATION RT-QID PRN 08/09/17 Inhaler] Amitriptyline HCl [Elavil] 25 mg PO HS 08/09/17 08/12/17 DULoxetine HCL [Cymbalta] 30 mg PO DAILY 08/09/17 08/12/17 Gabapentin [Neurontin] 300 mg PO BID 08/09/17 08/12/17 Meclizine [Antivert] 25 mg PO DAILY PRN 08/09/17 08/12/17 Naproxen [Naprosyn] 500 mg PO BID PRN 08/09/17 08/12/17 Ondansetron [Zofran ODT] 4 mg PO Q8HR PRN 08/09/17 08/12/17 lamoTRIgine [LaMICtal] 200 mg PO HS 08/09/17 08/12/17 Allergies Allergy/AdvReac Type Severity Reaction Status Date / Time No Known Allergies Allergy Verified 08/12/17 12:30 Review of Systems ROS Statement: Those systems with pertinent positive or pertinent negative responses have been documented in the HPI. ROS Other: All systems not noted in ROS Statement are negative. Past Medical History Past Medical History: Asthma Additional Past Medical History / Comment(s): back pain, syncope History of Any Multi-Drug Resistant Organisms: None Reported Past Surgical History: Section Additional Past Surgical History / Comment(s): D&C HYSTOSCOPE, neck surgery Past Psychological History: Anxiety, Depression Smoking Status: Current every day smoker Past Alcohol Use History: Rare Past Drug Use History: None Reported General Exam - General Exam Comments Initial Comments: General: The patient is awake and alert, in no distress, and does not appear acutely ill. Eye: Pupils are equal, round and reactive to light, extra-ocular movements are intact; there is normal conjunctiva bilaterally. No signs of icterus. Ears, nose, mouth and throat: There are moist mucous membranes. Neck: The neck is supple, there is no tenderness. Cardiovascular: There is a regular rate and rhythm. No murmur, rub or gallop is appreciated. Respiratory: Lungs are clear to auscultation, respirations are non-labored, breath sounds are equal. No wheezes, stridor, rales, or rhonchi. Gastrointestinal: Soft, non-distended, non-tender abdomen without masses or organomegaly noted. There is no rebound or guarding present. No CVA tenderness. Bowel sounds are unremarkable. Back: There is no tenderness to palpation in the midline. There is no obvious deformity. No rashes noted. Musculoskeletal: Normal ROM, no tenderness, There is no pedal edema. There is no calf tenderness or swelling. Sensation intact. Pulses equal bilaterally 2+. Neurological: CN II-XII intact, There are no obvious motor or sensory deficits. Coordination appears grossly intact. Speech is normal. NIH of 1 with some mild sensory deficit to the left side of the face Skin: Skin is warm and dry and no rashes or lesions are noted. Psychiatric: Cooperative, appropriate mood & affect, normal judgment. Limitations: no limitations Course Vital Signs 08/12/17 12:03 Temperature 98.1 F Pulse Rate 88 Respiratory 16 Rate Blood Pressure 117/76 O2 Sat by Pulse 100 Oximetry - Reevaluation(s) Reevaluation #1: 08/12/17 13:35 Patient's previous records; are reviewed that does show they're more suspicious of this being a calcification unrelated to the arterial system. They does have follow-up for the patient and they state that they diagnosed her with postconcussive syndrome. Medical Decision Making - Medical Decision Making 27-year-old female presents emergency Department chief complaint of headache. At this time x-rays reviewed from previous stay in our lab work was reviewed. At this time we discussed headache is most likely due to the continued postconcussive syndrome. This time we discussed follow-up return for hours all patient's family's questions. He stated the [facility] management plan. Patient will be discharged home. - Lab Data Result diagrams: 08/12/17 12:50 08/12/17 12:50 Lab Results 08/12/17 08/12/17 08/12/17 Range/Units 12:50 12:50 12:50 WBC 6.5 (3.8-10.6) k/uL RBC 4.61 (3.80-5.40) m/uL Hgb 13.3 (11.4-16.0) gm/dL Hct 38.3 (34.0-46.0) % MCV 83.1 (80.0-100.0) fL MCH 28.7 (25.0-35.0) pg MCHC 34.6 (31.0-37.0) g/dL RDW 13.0 (11.5-15.5) % Plt Count 184 (150-450) k/uL Neutrophils % 71 % Lymphocytes % 21 % Monocytes % 5 % Eosinophils % 1 % Basophils % 0 % Neutrophils # 4.6 (1.3-7.7) k/uL Lymphocytes # 1.4 (1.0-4.8) k/uL Monocytes # 0.3 (0-1.0) k/uL Eosinophils # 0.0 (0-0.7) k/uL Basophils # 0.0 (0-0.2) k/uL PT 10.4 (9.0-12.0) sec INR 1.0 (<1.2) APTT 27.8 (22.0-30.0) sec Sodium 139 (137-145) mmol/L Potassium 4.2 (3.5-5.1) mmol/L Chloride 107 (98-107) mmol/L Carbon Dioxide 20 L (22-30) mmol/L Anion Gap 12 mmol/L BUN 10 (7-17) mg/dL Creatinine 0.68 (0.52-1.04) mg/dL Est GFR (MDRD) Af Amer >60 (>60 ml/min/1.73 sqM) Est GFR (MDRD) Non-Af >60 (>60 ml/min/1.73 sqM) Glucose 80 (74-99) mg/dL Calcium 9.7 (8.4-10.2) mg/dL Total Bilirubin 0.6 (0.2-1.3) mg/dL AST 24 (14-36) U/L ALT 44 (9-52) U/L Alkaline Phosphatase 48 (38-126) U/L Total Protein 8.0 (6.3-8.2) g/dL Albumin 5.0 (3.5-5.0) g/dL Urine Color Urine Appearance (Clear) Urine pH (5.0-8.0) Ur Specific [place] (1.001-1.035) Urine Protein (Negative) Urine Glucose (UA) (Negative) Urine Ketones (Negative) Urine Blood (Negative) Urine Nitrite (Negative) Urine Bilirubin (Negative) Urine Urobilinogen (<2.0) mg/dL Ur Leukocyte Esterase (Negative) Urine WBC (0-5) /hpf Ur Squamous Epith Cells (0-4) /hpf Urine Mucus (None) /hpf 08/12/17 Range/Units 13:07 WBC (3.8-10.6) k/uL RBC (3.80-5.40) m/uL Hgb (11.4-16.0) gm/dL Hct (34.0-46.0) % MCV (80.0-100.0) fL MCH (25.0-35.0) pg MCHC (31.0-37.0) g/dL RDW (11.5-15.5) % Plt Count (150-450) k/uL Neutrophils % % Lymphocytes % % Monocytes % % Eosinophils % % Basophils % % Neutrophils # (1.3-7.7) k/uL Lymphocytes # (1.0-4.8) k/uL Monocytes # (0-1.0) k/uL Eosinophils # (0-0.7) k/uL Basophils # (0-0.2) k/uL PT (9.0-12.0) sec INR (<1.2) APTT (22.0-30.0) sec Sodium (137-145) mmol/L Potassium (3.5-5.1) mmol/L Chloride (98-107) mmol/L Carbon Dioxide (22-30) mmol/L Anion Gap mmol/L BUN (7-17) mg/dL Creatinine (0.52-1.04) mg/dL Est GFR (MDRD) Af Amer (>60 ml/min/1.73 sqM) Est GFR (MDRD) Non-Af (>60 ml/min/1.73 sqM) Glucose (74-99) mg/dL Calcium (8.4-10.2) mg/dL Total Bilirubin (0.2-1.3) mg/dL AST (14-36) U/L ALT (9-52) U/L Alkaline Phosphatase (38-126) U/L Total Protein (6.3-8.2) g/dL Albumin (3.5-5.0) g/dL Urine Color Yellow Urine Appearance Cloudy H (Clear) Urine pH 8.0 (5.0-8.0) Ur Specific [place] 1.016 (1.001-1.035) Urine Protein Trace H (Negative) Urine Glucose (UA) Negative (Negative) Urine Ketones Negative (Negative) Urine Blood Negative (Negative) Urine Nitrite Negative (Negative) Urine Bilirubin Negative (Negative) Urine Urobilinogen 3.0 (<2.0) mg/dL Ur Leukocyte Esterase Negative (Negative) Urine WBC 1 (0-5) /hpf Ur Squamous Epith Cells 18 H (0-4) /hpf Urine Mucus Few H (None) /hpf - Radiology Data Radiology results: report reviewed, image reviewed Disposition Clinical Impression: Post concussion syndrome Disposition: HOME SELF-CARE Condition: Stable Instructions: Concussion (ED), Post Concussion Syndrome (ED) Additional Instructions: Please use medication as discussed. Please follow up with family doctor if symptoms have not improved over the next two days. Please return to the emergency room if your symptoms increase or worsen or for any other concerns. Referrals: Rohini Orosco DO [Primary Care Provider] - 1-2 days Time of Disposition: 13:40
[2017-08-12 13:06] LABS: Basophils % (A) 0 %; CHCM 33.8; Eosinophils % (A) 1 %; HCT 38.3 % (34.0-46.0); HDW 2.66; HGB 13.3 gm/dL (11.4-16.0); Luc # (Auto) 0.15; Luc % (Auto) 2; Lymphocytes # (A) 1.4 k/uL (1.0-4.8); Lymphocytes % (A) 21 %; MCH 28.7 pg (25.0-35.0); MCHC 34.6 g/dL (31.0-37.0); MCV 83.1 fL (80.0-100.0); Mean Platelet Volume 8.8; Monocytes # (A) 0.3 k/uL (0-1.0); Monocytes % (A) 5 %; Neutrophils # (A) 4.6 k/uL (1.3-7.7); Neutrophils % (A) 71 %; RBC 4.61 m/uL (3.80-5.40); WBC 6.5 k/uL (3.8-10.6); WBC (Perox) 6.42
[2017-08-12 13:18] LABS: Partial Thromboplastin Time 27.8 sec (22.0-30.0); Prothrombin Time 10.4 sec (9.0-12.0)
[2017-08-12 13:21] LABS: ALT 44 U/L (9-52); AST 24 U/L (14-36); Alkaline Phosphatase 48 U/L (38-126); Anion Gap 12 mmol/L; Blood Urea Nitrogen 10 mg/dL (7-17); Calcium 9.7 mg/dL (8.4-10.2); Carbon Dioxide 20 mmol/L (22-30); Chloride 107 mmol/L (98-107); Glucose 80 mg/dL (74-99); Non-African American GFR(MDRD) >60 (>60 ml/min/1.73 sqM); Potassium 4.2 mmol/L (3.5-5.1); Sodium 139 mmol/L (137-145); Total Bilirubin 0.6 mg/dL (0.2-1.3)
[2017-08-12 13:26] LABS: Appearance,Urine Cloudy (Clear); Bilirubin,Urine Negative (Negative); Glucose,Urine (UA) Negative (Negative); Ketones,Urine Negative (Negative); Leukocyte Esterase,Urine Negative (Negative); Mucus,Urine Few /hpf; Nitrite,Urine Negative (Negative); Particle Count 7773; Protein,Urine Trace (Negative); Specific Gravity,Urine 1.016 (1.001-1.035); Squamous Epithelial Cell,Urine 18 /hpf (0-4); UA Billing (MACRO vs. MICRO) MICRO; WBC,Urine 1 /hpf (0-5)
--- NOTE | 2017-08-12 13:36 | CT ---
EXAMINATION TYPE: CT brain wo con DATE OF EXAM: 08/12/2017 COMPARISON: 08/09/2017 INDICATION: rt posterior head pain/concussion 3 days ago DLP: 1029.90 mGycm, Automated exposure control for dose reduction was used. CONTRAST: None CT of the brain is performed utilizing 3 mm thick sections through the posterior fossa and 3 mm thick sections through the remaining calvarium. Study is performed within 24 hours of arrival to the [facility]. No abnormal hyperdensity is present to suggest an acute intracranial hemorrhage. No mass lesion is evident. No acute infarcts are evident. Ventricles and sulci are appropriate for the patient age. There appears to be a prior inferior crani otomy. Paranasal sinuses and mastoid air cells within the [id number] are clear. Previous suspected aneurysm on this noncontrast CT is not evident on the current films. IMPRESSIONS: 1. Normal CT Brain
[2017-08-12] MEDS ORDERED: MORPHINE SULFATE 4 MG/ML SYRINGE IV STA (13:37)
[2017-08-12] MEDS ORDERED: KETOROLAC 30 MG/ML 1 ML VIAL IVP STA (13:37)
[2017-08-12 14:15] VITALS: BP 95/52; PULSE 64; RESP 18; TEMP 97.1
== END 2017-08-12 14:32 | disposition home or self-care (01) ==
LOC: EC 11:58
DX: F07.81 Postconcussional syndrome (principal); F32.9 Major depressive disorder, single episode, unspecified; F41.9 Anxiety disorder, unspecified; F17.200 Nicotine dependence, unspecified, uncomplicated; Z79.899 Other long term (current) drug therapy
CPT/HCPCS: 99284; 96374; 96375; 96361; 36415; 80053; 85025; 85610; 85730; 81001; 70450; J2270; J1885